=== PATIENT | female | born 1965 | race Asian ===

== ENCOUNTER 2018-12-02 09:08 | Day surgery (SDC) | payer OTHER, BC ==
[2018-12-02] MEDS ORDERED: FENTAnyl 50 MCG/ML VIAL (11:16)
[2018-12-02] MEDS ORDERED: MIDAZOLAM 1 MG/ML 2 ML INJ ×2 (11:17)
== END 2018-12-02 15:14 | disposition home or self-care (01) ==
LOC: GIL 09:08
DX: Z12.11 Encounter for screening for malignant neoplasm of colon (principal); K64.8 Other hemorrhoids
CPT/HCPCS: 45378; 84703